=== PATIENT | male | born 1950 | race Caucasian/White ===

== ENCOUNTER 2022-04-13 06:28 | Day surgery (SDC) | payer MEDICARE, OTHER, SELFPAY ==
[2022-04-08 10:38] VITALS: BMI 27.1
[2022-04-13 07:01] VITALS: BP 156/76; PULSE 60; RESP 16; TEMP 36.8; O2SAT 97
[2022-04-13] MEDS: Lactated Ringers 1,000 ML 100 ML IVCONT (07:55)
--- NOTE | 2022-04-13 07:59 | HO.ANESPROP2 ---
HPI - Anesthesia Eval Consult details Narrative: 71yo male patient for EGD, Colonoscopy PMFSH Active Problems Active Problems: Snores but denies CHINO Past Medical History Medical History Elevated cholesterol Sciatic leg pain Family History Family history of problems with anesthesia: No Surgical History Surgical History (Updated 04/08/22 @ 10:37 by Jazmyne Childress RN) H/O colonoscopy History of esophagogastroduodenoscopy (EGD) Hx of cataract extraction History of Problems with Anesthesia: No Social History Social History Patient Tobacco Use Status: Never used Tobacco Use of substances other than those prescribed or required for medical reasons: No Are you DNR?: No Advance Directives: No Advance Directives Information Provided: Yes Meds Allergies Allergy/AdvReac Type Severity Reaction Status Date / Time No Known Allergies Allergy Verified 04/13/22 06:53 Active Medications: Current Medications Lactated Ringer's (Lr) 1,000 mls @ 100 mls/hr IVCONT .Q10H [facility] Home Medications Medication Instructions Recorded Confirmed Last Taken Type simvastatin 10 mg tablet 10 mg PO BEDTIME 04/08/22 04/08/22 Unknown History Exam Exam Date and Time: April 13, 2022 0759 Height,Weight and Vital Signs: Height 5 ft 6 in Weight 76.204 kg Last Vital Signs Temp 98.2 F 04/13/22 07:01 Pulse 60 04/13/22 07:01 Resp 16 04/13/22 07:01 BP 156/76 H 04/13/22 07:01 Pulse Ox 97 04/13/22 07:01 O2 Del Method 04/13/22 07:01 Airway Mallampati Class: II TM Dist: >3cm Neck ROM: Full Loose/Missing/Broken Teeth: No Heart: RRR Lungs: CTAB Assessment and Plan Assessment Anesthesia Assessment: Anesthesia Plan Discussed and Chart Reviewed Final Anesthetic Review Family History of Problems with Anesthesia: No History of Problems with Anesthesia: No NPO: Yes ASA Class: II Final Preanesthetic Review: No Changes in Pt Med Stat, Meds/Allgs Chart Reviewed, Consent Obtained/Reviewed and Anes Risks/Benef Reviewed Patient Risk: Low Procedure Risk: Low Assessment/Block/Sedation in SS: Assess/Block/Sedation-SS Anesthetic Plan Anesthetic Plan: MAC: Disposition: Standard PACU
--- NOTE | 2022-04-13 08:06 | P.HPSUR_ITS ---
Pre-Procedural Eval Section A Date of Service: 04/13/22 Section B Chief Complaint: screening,Gastric intestinal metaplasia,bacterial Details of Present Illness: see H&P no changes Relevant Family History (Specify if Yes): No Relevant Social History: None Present Medications: see Short Stay Collaborative assessment Medical History: No relevant PMH History of Previous Operations: No relevant previous surgery Allergies: Allergies Allergy/AdvReac Type Severity Reaction Status Date / Time No Known Allergies Allergy Verified 04/13/22 06:53 Review of Systems Sugical H&P ROS: Negative: Constitution, Cardiovascular, Respiratory, Neurolo gical, Psychiatric, Hem-Onc, Allergic/Immunologic, Gastrointestinal, Genitourinary, Musculoskeletal, Integumentary, Endocrine and Eyes/Ears/Nose/Throat Exam Surgical H&P Exam: Normal: HEENT, Normal: Heart, Normal: Lungs, Normal: Extremities, Normal: Abdomen, Normal: Skin and Normal: Neurological Plan Diagnosis/Plan: Unchanged I have reviewed the history and physical and performed a pertinent physical examination on my patient. No changes have occurred unless specified.
[2022-04-13 08:50] VITALS: BP 114/55; PULSE 49; RESP 16; TEMP 36.1; O2SAT 97
--- NOTE | 2022-04-13 08:52 | P.BOP_ITS ---
Brief Operative Note Date of Service: 04/13/22 Pre-op diagnosis: gastric intestinal metaplasia screeening Post-op diagnosis: same Surgeon: Tung Yadav Anesthesia: MAC Was an Assembler Product used for this Procedure?: No Estimated blood loss (mL): 5 Pathology: other Condition: stable Disposition: PACU
[2022-04-13 09:05] VITALS: BP 134/67; PULSE 61; RESP 18; TEMP 36.5; O2SAT 100
--- NOTE | 2022-04-13 19:50 | OP_ITS ---
SURGEON: Tung Yadav MD INDICATIONS: Gastric intestinal metaplasia, colon cancer screening. PREOPERATIVE DIAGNOSIS: POSTOPERATIVE DIAGNOSIS: PROCEDURE PERFORMED: ESTIMATED BLOOD LOSS: COMPLICATIONS: ANESTHESIA: Monitored anesthesia care. ASSISTANTS: SPECIMENS: PROCEDURES PERFORMED: 1. Upper endoscopy with biopsy. 2. Colonoscopy to the cecum. PROCEDURE DESCRIPTION: History and physical performed. Procedure date is 04/13/22. The risks and benefits of the procedure were explained to the patient. Informed consent was obtained. The patient was placed in the left lateral decubitus position. The Olympus video gastroscope was introduced into the esophagus, stomach, and duodenum. Examination was performed. The scope was removed. He was repositioned for colonoscopy. A digital rectal exam was performed and was found to be normal. The Olympus pediatric video colonoscope was introduced into the rectum and advanced to the cecum without difficulty. The cecum was identified by transillumination, palpation, and identification of ileocecal valve. Examination was performed. The scope was removed. He tolerated the procedure well and sent to recovery area in stable condition. FINDINGS: UPPER ENDOSCOPY: 1. Esophagus: The esophagus was normal. 2. Stomach: The stomach showed no evidence of masses, ulcers, or polyps. Biopsies were obtained from the antrum and body on the greater and lesser curvature and from the angularis to assess for extent of gastric intestinal metaplasia. 3. Duodenum: The bulb and second portion were normal. COLONOSCOPY: The terminal ileum was not examined. The visualized colonic mucosa was normal. There was some stool coating the mucosa mainly in the right colon and transverse colon. This was washed and suctioned and limited the detection of small polyps. No polyps were identified. Retroflexed examination showed small internal hemorrhoids. IMPRESSION: 1. Gastric intestinal metaplasia. 2. Normal colonoscopy. RECOMMENDATIONS: 1. Follow up the biopsy results. 2. Repeat colonoscopy is recommended in 10 years for average risk individuals. MD MARCOS Moore/DIONTE / [id number] MTDD
== END 2022-04-13 09:43 | disposition home or self-care (01) ==
PROVIDERS: PCP Internal Medicine; Visit Provider Internal Medicine Gastroenterology
PROC: (CPT 43239; principal; 2022-04-13 08:10)
DX: Z12.11 Encounter for screening for malignant neoplasm of colon (principal); K64.8 Other hemorrhoids; K31.A15 Gastric intestinal metaplasia without dysplasia, involving multiple sites; E78.00 Pure hypercholesterolemia, unspecified; M54.30 Sciatica, unspecified side; R35.1 Nocturia; Z79.899 Other long term (current) drug therapy
CPT/HCPCS: 43239; G0121; 88305; 88342